=== PATIENT | male | born 1990 | race Caucasian/White ===

== ENCOUNTER → 2017-08-06 | Outpatient (CLI) | payer BC ==
[2017-08-06 10:39] LABS: ALT 19 U/L (21-72); AST 16 U/L (17-59); Albumin 4.3 g/dL (3.5-5.0); Alkaline Phosphatase 37 U/L (38-126); Anion Gap 15 mmol/L; Blood Urea Nitrogen 18 mg/dL (9-20); Calcium 9.3 mg/dL (8.4-10.2); Carbon Dioxide 25 mmol/L (22-30); Chloride 106 mmol/L (98-107); Glucose 98 mg/dL (74-99); Potassium 4.6 mmol/L (3.5-5.1); Sodium 146 mmol/L (137-145); Total Bilirubin 0.3 mg/dL (0.2-1.3); Total Protein 7.3 g/dL (6.3-8.2)
[2017-08-06 10:54] LABS: T4, Free (Free Thyroxine) 0.88 ng/dL (0.78-2.19)
[2017-08-06 17:34] LABS: ACTH 47.3 pg/mL (0.00-45.99)
== END | disposition home or self-care (01) ==
LOC: LABWHC1 08:32
PROVIDERS: ATTEND Internal Medicine Endocrinology, Diabetes & Metabolism
DX: E21.3 Hyperparathyroidism, unspecified (principal)
CPT/HCPCS: 36415; 80053; 82024; 82533; 83001; 83002; 84146; 84402; 84403; 84439; 84443

== ENCOUNTER → 2017-11-26 | Outpatient (CLI) | payer BC ==
--- NOTE | 2017-11-26 12:55 | MR ---
EXAMINATION TYPE: MR pituitary wo/w con DATE OF EXAM: 11/26/2017 COMPARISON: Prior MR 06/01/2014, nuclear medicine parathyroid scan 01/27/2014, CT neck 03/31/2014 HISTORY: Pituitary microadenoma TECHNIQUE: Multiplanar, multisequence images of the sella turcica is performed without and with IV contrast, uti lizing 7 mL intravenous Gadavist . FINDINGS: The pituitary shows a stable appearance. There is no extra-axial fluid collection or signif icant white matter signal abnormality in the visualized portions of the brain. The ventricular syste m and cisternal spaces are normal in size and appearance as 13. The brain volume is age appropriate in the limited portions. 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 Midline structures demonstrate stable morphology. The craniocervical junction appears within normal limits. Post contrast images demonstrate mildly heterogeneous enhancement similar to prior exam. The re is mild asymmetry with some prominence anteriorly and inferiorly pituitary shows the right of midl ine as compared to the left thought to be normal variant. IMPRESSION: Findings are thought to be stable, possibly normal variant. Apparent super aortic thoraci c aorta anatomy noted on previous CT
== END | disposition home or self-care (01) ==
LOC: RADMRIMAIN 09:10
PROVIDERS: ATTEND Internal Medicine
DX: D35.2 Benign neoplasm of pituitary gland (principal)
CPT/HCPCS: 70553; A9581

== ENCOUNTER → 2017-12-24 | Outpatient (CLI) | payer BC ==
[2017-12-24 09:07] LABS: Anion Gap 8 mmol/L; Blood Urea Nitrogen 16 mg/dL (9-20); Calcium 8.9 mg/dL (8.4-10.2); Carbon Dioxide 26 mmol/L (22-30); Chloride 108 mmol/L (98-107); Glucose 92 mg/dL (74-99); Sodium 142 mmol/L (137-145)
[2017-12-24 17:23] LABS: Parathyroid Hormone Intact 27.1 pg/mL (14.0-72.0)
[2017-12-24 17:35] LABS: Vitamin D 25 Hydroxy 43.6 ng/mL (30.0-100.0)
== END | disposition home or self-care (01) ==
LOC: LABWHC1 08:13
PROVIDERS: ATTEND Internal Medicine
DX: E29.1 Testicular hypofunction (principal); E22.1 Hyperprolactinemia; E55.9 Vitamin D deficiency, unspecified; E21.3 Hyperparathyroidism, unspecified
CPT/HCPCS: 36415; 80048; 82306; 83001; 83002; 83970; 84146; 84402; 84403

== ENCOUNTER → 2018-11-22 | Outpatient (CLI) | payer BC | END | disposition home or self-care (01) | LOC: LABWHC1 11:00 | PROVIDERS: ATTEND Internal Medicine | DX: E31.21 Multiple endocrine neoplasia [MEN] type I (principal) | CPT/HCPCS: 36415; 82941 ==

== ENCOUNTER 2018-12-03 09:02 | Day surgery (SDC) | payer BC ==
[2018-12-02 10:24] VITALS: BMI 25.8
[~2018-12-03 09:02] MED LIST: LACTATED RINGERS 1,000 ML IV SCH
[2018-12-03 09:16] VITALS: TEMP 98.6
[2018-12-03] MEDS ORDERED: LACTATED RINGERS 1,000 ML IV ONE (09:16)
[2018-12-03] MEDS ORDERED: LIDOCAINE 1% 20 ML VIAL (10MG/ML) FOR IV START INTRADERMA ONE (09:16)
[2018-12-03] MEDS ORDERED: LIDOCAINE 1% INJ 10MG/ML (20 ML MDV) ONE (10:12)
[2018-12-03] MEDS ORDERED: PROPOFOL 10 MG/ML 20 ML VIAL IV ONE (10:12)
[2018-12-03] MEDS ORDERED: fentaNYL (PF) 50 MCG/ML 2 ML AMP ONE (10:12)
[2018-12-03] MEDS ORDERED: MIDAZOLAM 2 MG/2 ML VIAL ONE (10:12)
--- NOTE | 2018-12-03 10:53 | P.PCN ---
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 Initially the patient was seen in the outpatient setting. He reported symptoms of burning in his throat, belching and regurgitation. 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 Currently he is on Cabergoline and following with a teacher, for management of a pituitary microadenoma. He reports the genetic disorder in a and and cousin. He previously had upper endoscopy approximately 5 years ago but is unsure of the results. Computed tomography scan imaging with oral and IV contrast of the abdomen was essentially negative in 01/28/2018. PROCEDURE PERFORMED: Esophagogastroduodenoscopy with biopsy. PREOPERATIVE DIAGNOSIS: GERD, MEN1. ESTIMATED BLOOD LOSS: Minimal. IV sedation per anesthesia. PROCEDURE: After informed consent was obtained, the patient was brought into the endoscopy unit. IV sedation was administered by Anesthesia under continuous monitoring. Initially the Olympus GIF-190 video endoscope was inserted into the mouth. Esophagus intubated without any difficulty. It was gradually advanced into the stomach and duodenum and carefully examined. The bulb and the second part of the duodenum appeared normal. There was a mucosal abnormality in the fourth portion of the duodenum with slight thickening of a fold and some calcification which was biopsied and a tattoo was placed adjacent to the biopsies. The duodenum was then randomly biopsied, with no other mucosal abnormalities noted. The scope at this time was withdrawn to the stomach, adequately insufflated with air, and upon careful examination, mucosa of the antrum, body, cardia and the fundus appeared grossly normal except for some mild scattered erythema in the antrum and body suggestive of mild gastritis with biopsies taken. The scope was then withdrawn into the esophagus. The GE junction was located at 39 cm from the incisors. The esophagus appeared normal. There were no erosions or ulcerations seen and the patient tolerated the procedure well. IMPRESSION: 1. Abnormal duodenal tissue in the fourth portion of the duodenum, biopsied and tattooed placed adjacent to the biopsies. 2. Mild gastritis antrum body, biopsied. 3. Random duodenal biopsies. RECOMMENDATIONS: The findings of this examination were discussed with the patient in his father. Okay to resume diet. Await pathology from biopsies. Follow up with gastroenterology as previously scheduled.
[2018-12-03 11:11] VITALS: BP 106/75; PULSE 73; RESP 18
== END 2018-12-03 11:12 | disposition home or self-care (01) ==
LOC: ORWHC2ENDO 09:02
PROVIDERS: ATTEND Internal Medicine
DX: K21.9 Gastro-esophageal reflux disease without esophagitis (principal); K29.50 Unspecified chronic gastritis without bleeding; E31.21 Multiple endocrine neoplasia [MEN] type I; E89.0 Postprocedural hypothyroidism; D35.2 Benign neoplasm of pituitary gland
CPT/HCPCS: 43243; 43239; 88305; J2250; J2001; J3010; J2704